=== PATIENT | female | born 1990 | race Caucasian/White ===

== ENCOUNTER → 2018-03-12 | Outpatient (CLI) | payer OTHER ==
--- NOTE | 2018-03-12 11:01 | Diagnostic Imaging Report ---
INDICATION: Pain in the medial left breast. Sonographic interrogation of the area of pain in the medial left breast was performed. This corresponds to the 9 o'clock location approximately 4 cm from the nipple. There is an ovoid hypoechoic area of echogenicity measuring 9 mm x 12 mm x 3 mm. It is uncertain if this is a true mass versus a breast tissue. No internal vascularity is seen. No posterior acoustic shadowing or enhancement is seen. No other abnormalities are identified. IMPRESSION: Circumscribed echogenicity at the 9 o'clock location of the left breast at the area of pain. This has benign features and may represent breast tissue versus other etiology such as a fibroadenoma. Even so, followup left breast ultrasound in 6 months is recommended to confirm stability. BI-RADS category 3 ACR BI-RADS Category 3: Probably benign findings. Dictated by: Dictated on workstation # [id number]
--- NOTE | 2018-03-12 11:06 | Diagnostic Imaging Report ---
Indication: Left breast pain. No prior mammograms are available for comparison. 2-D and 3-D bilateral diagnostic mammography was performed with CAD. Both breasts are heterogeneously dense, limiting the sensitivity of mammography. A BB marker was placed at the area of pain in the medial left breast. Dense tissue is identified in this region. No discrete mass or malignant-appearing microcalcifications are seen. The axillae are unremarkable. Impression: BI-RADS 0 No mammographic features suspicious for malignancy are identified. Even so, sonographic interrogation of the area of pain in the medial left breast is recommended and will be performed today. Dictated by: Dictated on workstation # [id number]
== END ==
LOC: RAD 08:41
PROVIDERS: ATTEND Nurse Practitioner Family
DX: N64.4 Mastodynia (principal)
CPT/HCPCS: 76642; 77066

== ENCOUNTER → 2019-03-25 | Outpatient (CLI) | payer OTHER ==
--- NOTE | 2019-03-25 12:26 | Diagnostic Imaging Report ---
Limited ultrasound left breast. Indication: Left breast pain. The diagnostic mammogram performed earlier today failed to show any sign of malignancy or an acute abnormality to account for the patient's left breast pain The previous left breast ultrasound exam performed 03/12/2018 noted ovoid hypoechoic area measuring 9 x 12 x 3 mm. It is not certain whether this was related to fibroglandular tissue alone or to a small lesion such as a fibroadenoma. On this exam that finding is again evident. During my real-time examination of the patient, this finding appeared to resemble fibroglandular tissue. There is no discrete solid or cystic mass identified. There is no sign of an abscess to account for the patient's pain. Impression: 1. The small hypoechoic area in the left breast seen previously is again evident and no different. Most likely this is due to fibroglandular tissue alone. 2. There is no evidence for malignancy and there is no acute abnormality identified. Clinical followup is recommended. ACR category 1 ACR BI-RADS Category 1: Negative. Result letter will be mailed to the patient. Note: At least 10% of breast cancer is not imaged by mammography. Dictated by: Dictated on workstation # [id number]
--- NOTE | 2019-03-26 07:41 | Diagnostic Imaging Report ---
Unilateral diagnostic left mammogram. Indication: Pain This study was compared to the prior exam of 03/03/2018. At this time the patient does complain of pain in the left breast. The fibroglandular tissue in the left breast is heterogeneously dense. This does limit the sensitivity of this exam. There is no primary or secondary sign of malignancy noted. There is no underlying abnormality to account for the patient's pain either. IMPRESSION: 1. There is no evidence of malignancy or for an acute abnormality. 2. Ultrasound is pending for further evaluation. ACR BI-RADS Category 0: Incomplete. (Needs additional imaging evaluation). Result letter will be mailed to the patient. Note: At least 10% of breast cancer is not imaged by mammography. Dictated by: Dictated on workstation # [id number]
== END ==
LOC: RAD 09:33
PROVIDERS: ATTEND Nurse Practitioner Family
DX: D24.2 Benign neoplasm of left breast (principal)
CPT/HCPCS: 76642

== ENCOUNTER → 2020-08-14 | Outpatient (CLI) | payer OTHER ==
--- NOTE | 2020-08-14 19:54 | Diagnostic Imaging Report ---
EXAM: Ultrasound exam of the left breast limited INDICATION: Left breast pain The diagnostic mammogram performed prior to this study failed to show any sign of malignancy or of an acute abnormality to account for the patient's left breast pain. The ultrasound examination in this area is also unremarkable for a discrete solid or cystic mass. There is no sign of an abscess either. In reviewing the previous left breast ultrasound exam of 03/12/2018, there was a 9 x 12 x 3 mm hypoechoic area in the 9 o'clock position of the breast. That finding is difficult to appreciate on the study and may have been related to fibroglandular tissue alone. IMPRESSION: There is no evidence for malignancy. There is no acute abnormality to account for the patient's breast pain. Clinical follow-up is recommended. ACR BI-RADS Category 1: Negative. Result letter will be mailed to the patient. Note: At least 10% of breast cancer is not imaged by mammography. Dictated by: Dictated on workstation # [id number]
--- NOTE | 2020-08-14 20:29 | Diagnostic Imaging Report ---
EXAM: Digital mammogram, bilateral diagnostic. INDICATION: Left breast pain This study was compared to the prior exams of 03/25/2019 and 03/12/2018. At this time, the patient does complain of pain in the medial aspect of the left breast. On the patient's prior exam from 2018 she also complained of pain in the same region. The fibroglandular tissue in both breasts is heterogeneously dense. This does limit the sensitivity of this exam. Overall, there has been no significant change since the prior study. There is no primary or secondary sign of malignancy noted. There is no abnormality involving the left breast to account for the patient's pain either. IMPRESSION: 1. There is no evidence of malignancy or for an acute abnormality. 2. Ultrasound of the left breast is pending for further study. ACR category 0 ACR BI-RADS Category 0: Incomplete. (Needs additional imaging evaluation). Result letter will be mailed to the patient. Note: At least 10% of breast cancer is not imaged by mammography. Dictated by: Dictated on workstation # [id number]
== END ==
LOC: RAD 14:15
PROVIDERS: ATTEND Pediatrics
DX: N63.20 Unspecified lump in the left breast, unspecified quadrant (principal)
CPT/HCPCS: 76642; 77066; G0279; 77062